=== PATIENT | male | born 2000 | race Caucasian/White ===

== ENCOUNTER 2024-09-18 15:45 | Emergency (ER) | payer OTHER ==
[~2024-09-18] VITALS: Ht 188 cm; Wt 80.9 kg
[2024-09-18] MEDS ORDERED: Rabies Immune Globulin PF 300 UNITS/2 ML VIAL IM ONE (16:00)
[2024-09-18] MEDS ORDERED: Amoxicillin/Clavulanate K+ 875/125 MG TAB PO ONE (16:00)
[2024-09-18] MEDS ORDERED: Ketorolac 10 MG TAB PO ONE (16:45)
[2024-09-18] MEDS ORDERED: AMOXICILLIN AND1 TA2 PO (16:47)
[2024-09-18 17:12] VITALS: BP 125/77
== END 2024-09-18 17:12 | disposition home or self-care (01) ==
LOC: ED 15:45
DX: S61.252A Open bite of right middle finger without damage to nail, initial encounter (principal); Z20.3 Contact with and (suspected) exposure to rabies; Z23 Encounter for immunization; W55.01XA Bitten by cat, initial encounter